=== PATIENT | male | born 1955 | race African-American/Black ===

== ENCOUNTER 2018-04-04 08:57 | Inpatient (IN) | payer OTHER ==
[2018-04-04] VITALS (16 sets, daily range): BP systolic 103–129; BP diastolic 51–76
[~2018-04-04] VITALS: Ht 167.6 cm; Wt 44.5 kg
[2018-04-04 09:48] LABS: BASOPHILS % 1.3 % (0.0-2.0); HEMATOCRIT. 32.7 % (42.0-52.0); HEMOGLOBIN. 10.7 g/dL (14.0-18.0); LYMPHOCYTES % 7.1 % (20.0-50.0); MEAN CORPUSCULAR HEMOGLOBIN 30.4 pg (28.0-32.0); MEAN CORPUSCULAR VOLUME 92.8 fL (80.0-94.0); MONOCYTES % 3.9 % (2.0-8.0); NEUTROPHILS % 87.7 % (40.0-76.0); PLATELET 200 x1000/uL (130-400); RED BLOOD CELL COUNT 3.52 mill/uL (4.7-6.1); RED CELL DISTRIBUTION WIDTH 14.3 % (11.6-14.6)
[2018-04-04 09:55] LABS: CHLORIDE 101 mEq/L (98-107)
[2018-04-04 09:56] LABS: PROTHROMBIN TIME 10.6 sec (9.4-11.6)
[2018-04-04] MEDS ORDERED: SODIUM CHLORIDE 0.9% 1,000 ML IV ONE (11:15)
[2018-04-04] MEDS ORDERED: IPRATROPIUM/ALBUTEROL 0.5-3(2.5)MG/3ML NEB INH PRN (11:30)
[2018-04-04] MEDS ORDERED: PANTOPRAZOLE 80 MG in SODIUM CHLORIDE 0.9% 100 ML IV SCH ×2 (11:30→16:00)
[2018-04-04] MEDS ORDERED: OCTREOTIDE 1,000 MCG in SODIUM CHLORIDE 0.9% 100 ML IV ONE (11:30)
[2018-04-04] MEDS ORDERED: ONDANSETRON HCL 4MG/2ML VIAL IV PRN (11:30)
[2018-04-04] MEDS ORDERED: CLONIDINE 0.1MG TABLET PO PRN (11:30)
[2018-04-04] MEDS ORDERED: MORPHINE SULFATE 4 MG/ML CPJ (NOT FOR IM USE) IV PRN (11:30)
[2018-04-04] MEDS ORDERED: PANTOPRAZOLE SODIUM 40 MG/VIAL IV STA (11:33)
[2018-04-04] MEDS ORDERED: CEFTRIAXONE 1 G PREMIX 50 ML IV SCH ×2 (11:45→15:00)
[2018-04-04] MEDS ORDERED: ONDANSETRON HCL 4MG/2ML VIAL IV ONE (11:45)
[2018-04-04] MEDS ORDERED: MORPHINE SULFATE 4 MG/ML CPJ (NOT FOR IM USE) IV ONE (11:45)
[2018-04-04 11:57] LABS: HEMATOCRIT 32.2 % (42.0-52.0); HEMOGLOBIN 10.6 g/dL (14.0-18.0)
[2018-04-04] MEDS ORDERED: SODIUM CHLORIDE 0.9% 1,000 ML IV SCH (14:00)
[2018-04-04 15:28] LABS: PROTHROMBIN TIME 10.6 sec (9.4-11.6)
[2018-04-04] MEDS ORDERED: INSULIN LISPRO 100 UNITS/ML SUBCUT NR (18:42)
[2018-04-04] MEDS ORDERED: DEXTROSE 50% WATER 50ML SYRINGE IV PRN (18:45)
[2018-04-04] MEDS ORDERED: INSU100I28 SQ (18:57)
[2018-04-04 19:28] LABS: HEMATOCRIT 30.7 % (42.0-52.0); HEMOGLOBIN 10.1 g/dL (14.0-18.0)
[2018-04-04] MEDS ORDERED: INSULIN LISPRO 100 UNITS/ML SUBCUT SCH (21:00)
[2018-04-04] MEDS ORDERED: BLOOD SUGAR DIAGNOSTIC STRIP TEST SCH (21:00)
[2018-04-04 22:32] LABS: CLARITY URINE CLEAR (CLEAR); COLOR URINE YELLOW (YELLOW); KETONES URINE TRACE (NEGATIVE); LEUKOCYTE ESTERASE URINE NEGATIVE (NEGATIVE); NITRITE URINE NEGATIVE (NEGATIVE); OCCULT BLOOD URINE NEGATIVE (NEGATIVE); PROTEIN URINE TRACE (NEGATIVE); SPECIFIC GRAVITY URINE 1.028 (1.005-1.030); UROBILINOGEN URINE 0.2 E.U./dL (0.2-1.0)
[2018-04-04 23:03] LABS: *BARBITURATES SCREEN URINE NEGATIVE (NEGATIVE); *BENZODIAZEPINES SCREEN URINE NEGATIVE (NEGATIVE); *COCAINE SCREEN URINE NEGATIVE (NEGATIVE)
[2018-04-04 23:04] LABS: CANNABINOID URINE SCREEN NEGATIVE (NEGATIVE); METHADONE URINE SCREEN NEGATIVE (NEGATIVE); OPIATES URINE SCREEN PRESUMTIVE POSITIVE (NEGATIVE); PHENCYCLIDINE URINE SCREEN NEGATIVE (NEGATIVE)
[2018-04-04 23:05] LABS: *AMPHETAMINES SCREEN URINE NEGATIVE (NEGATIVE)
== END 2018-04-04 22:45 | disposition short-term general hospital (02) | DRG 535 ==
LOC: ER 09:56 → 5EST 11:42 → ENRESERV 12:22
PROVIDERS: ADMIT Internal Medicine; ATTEND Internal Medicine
DX: S72.145A Nondisplaced intertrochanteric fracture of left femur, initial encounter for closed fracture (principal); K29.61 Other gastritis with bleeding; K27.4 Chronic or unspecified peptic ulcer, site unspecified, with hemorrhage; R64 Cachexia; Z68.1 Body mass index [BMI] 19.9 or less, adult; K27.9 Peptic ulcer, site unspecified, unspecified as acute or chronic, without hemorrhage or perforation; D64.9 Anemia, unspecified; D72.829 Elevated white blood cell count, unspecified; J44.9 Chronic obstructive pulmonary disease, unspecified; W18.39XA Other fall on same level, initial encounter; R00.0 Tachycardia, unspecified; E11.65 Type 2 diabetes mellitus with hyperglycemia; Z79.4 Long term (current) use of insulin; Z87.891 Personal history of nicotine dependence; Y93.89 Activity, other specified; Y92.89 Other specified places as the place of occurrence of the external cause; Y99.8 Other external cause status; Z79.899 Other long term (current) drug therapy
CPT/HCPCS: 36415; 51702; 71045; 73502; 73552; 73610; 73700; 80053; 80305; 81003; 82962; 83036; 84134; 85014; 85018; 85025; 85044; 85610; 86850; 86900; 93005; 93306; 96374; 96375; 99285; C9113; J0696; J1815; J2270; J2354; J2405; J7030; J7050; A4315